=== PATIENT | female | born 1960 | race Caucasian/White ===

== ENCOUNTER 2019-10-07 09:06 | Inpatient (IN) | payer OTHER ==
[~2019-10-07 09:06] MED LIST: Buffered Lidocaine 1% SYRIN* 1 ML/SYRINGE INTRADERM ONE; Dexamethasone IV* 4 MG/ML 1 ML (4 MG) IV SLOW PU ONE; Famotidine IV* 10 MG/ML 2 ML (20 mg) IV ONE; Gabapentin CAP(*) 400 MG PO ONE; Lactated Ringers 1000 ML Bag* 1,000 ML IV SCH; Tranexamic Acid 1,000 MG in NS 0.9% 50 ML* (outpatient use) IV SCH
--- OUTSIDE RECORDS SUMMARY | 2019-10-07 09:10 | XMS REPORT | Continuity of Care Document ---
:1960 External Reference #:[id number] Author Name Sebastien Castillo M.D. (transmitted by agent of provider Harriet Ochoa) Address [address] [place] [address] Problems Description No Information Available Social History Type Date Description Comments Sex Unknown ETOH Use Occasionally consumes alcohol Tobacco Use Start: Unknown Patient is a current smoker, smokes every day Smoking Status Reviewed: 08/30/19 Patient is a current smoker, smokes every day Allergies, Adverse Reactions, Alerts Active Allergies Reaction Severity Comments Date Percocet 08/23/2019 Medications Active Medications SIG Qnty Indications Ordering Provider Date Equapax/Ibuprofen/Minrex tid prn Unknown 800mg THPK Immunizations Description No Information Available Vital Signs Date Vital Result Comment 08/30/2019 2:00pm Height 67 inches 5'7" Weight 128.00 lb Heart Rate 88 /min BP Systolic Sitting 120 mmHg BP Diastolic Sitting 84 mmHg Body Temperature 98.0 F BMI (Body Mass Index) 20.0 kg/m2 Results Description No Information Available Procedures Description No Information Available Medical Devices Description No Information Available Encounters Description No Information Available Assessments Date Code Description Provider 08/30/2019 M16.11 Unilateral primary osteoarthritis, right hip Sebastien Castillo M.D. Plan of Treatment 08/30/2019 - Sebastien Castillo M.D.M16.11 Unilateral primary osteoarthritis, right hipFollow up:4 weeks after surgery Functional Status Description No Information Available Mental Status Description No Information Available Referrals Description No Information Available
--- OUTSIDE RECORDS SUMMARY | 2019-10-07 09:10 | XMS REPORT | Continuity of Care Document ---
:1960 External Reference #:[id number] Author Name Sebastien Castillo M.D. (transmitted by agent of provider Harriet Ochoa) Address [address] [place] [address] Problems Description No Information Available Social History [...]
--- OUTSIDE RECORDS SUMMARY | 2019-10-07 09:10 | XMS REPORT | Continuity of Care Document ---
:1960 External Reference #:[id number] Author Name Wen Berger MD, [facility] (transmitted by agent of provider Pooja Olivas) Address [address] [place] [address] Problems Description No Information Available Social History [...] BMI (Body Mass Index) 20.0 kg/m2 Results Test Acquired Date Facility Test Result H/L Range Note Inr/Protime 09/25/2019 [facility] Inr 0.88 Normal 0.82-1.[address] [place] [address] [phone] Laboratory test 09/25/2019 [facility] Partial 32.9 Normal 26.0 -38.[address] [place] [address] PTT [phone] Comp Metabolic 09/25/2019 [facility] Sodium 136 mmol/L Normal 135-[address] [place] [address] [phone] Potassium 4.3 mmol/L Normal 3.5-5.0 Chloride 101 mmol/L Normal 101-111 Co2 Carbon Dioxide 29 mmol/L Normal 22-32 Anion Gap 6 mmol/L Normal 2-11 Glucose 91 mg/dL Normal 70-100 Blood Urea Nitrogen 7 mg/dL Normal 6-24 Creatinine 0.67 mg/dL Normal 0.51-0.95 BUN/Creatinine Ratio 10.4 Normal 8-20 Calcium 9.6 mg/dL Normal 8.6-10.3 Total Protein 7.0 g/dL Normal 6.4-8.9 Albumin 4.4 g/dL Normal 3.2-5.2 Globulin 2.6 g/dL Normal 2-4 Albumin/Globulin Ratio 1.7 Normal 1-3 Total Bilirubin 0.80 mg/dL Normal 0.2-1.0 Alkaline Phosphatase 80 U/L Normal 34-104 Alt 15 U/L Normal 7-52 Ast 27 U/L Normal 13-39 Egfr Non- 90.1 >60 Egfr 109.0 >60 2 CBC Auto 09/25/2019 [facility] White Blood 7.7 10^3/uL Normal 3.5-10.[address] [place] [address] [phone] Red Blood Count 4.56 10^6/uL Normal 3.70-4.87 Hemoglobin 16.7 g/dL High 12.0-16.0 Hematocrit 49 % High 35-47 Mean Corpuscular Volume 107 fL High 80-97 Mean Corpuscular Hemoglobin 37 pg High 27-31 Mean Corpuscular HGB Conc 34 g/dL Normal 31-36 Red Cell Distribution Width 14 % Normal 10-15 Platelet Count 268 10^3/uL Normal 150-450 Mean Platelet Volume 7.3 fL Low 7.4-10.4 Abs Neutrophils 4.9 10^3/uL Normal 1.5-7.7 Abs Lymphocytes 2.0 10^3/uL Normal 1.0-4.8 Abs Monocytes 0.6 10^3/uL Normal 0-0.8 Abs Eosinophils 0.1 10^3/uL Normal 0-0.6 Abs Basophils 0.0 10^3/uL Normal 0-0.2 Abs Nucleated RBC 0.0 10^3/uL Granulocyte % 64.4 % Lymphocyte % 26.5 % Monocyte % 7.5 % Eosinophil % 1.0 % Basophil % 0.6 % Nucleated Red Blood Cells % 0.1 Type & Screen 09/25/2019 [facility] Patient Blood Type A Positive [address] [place] [address] [phone] Antibody Screen NEGATIVE 1 Standard intensity warfarin therapeutic range: 2.0-3.0 High intensity warfarin therapeutic range: 2.5-3.5 2 Because ethnic data is not always readily available, this report includes an eGFR for both -Americans and non- Americans. The National Kidney Disease Education Program (NKDEP) does not endorse the use of the MDRD equation for patients that are not between the ages of 18 and 70, are , have extremes of body size, muscle mass, or nutritional status, or are non- or non-. According to the National Kidney Foundation, irrespective of diagnosis, the stage of the disease is based on the level of kidney function: Stage Description GFR(mL/min/1.73 m(2)) 1 Kidney damage with normal or decreased GFR 90 2 Kidney damage with mild decrease in GFR 60-89 3 Moderate decrease in GFR 30-59 4 Severe decrease in GFR 15-29 5 Kidney failure <15 (or dialysis) Procedures Description No Information Available Medical Devices Description No Information Available Encounters Type Date Location Provider Dx Diagnosis Office Visit 08/30/2019 [facility] Sebastien Castillo, M16.11 Unilateral primary 2:00p at [facility] osteoarthritis, right hip M16.12 Unilateral primary osteoarthritis, left hip Assessments Date Code Description Provider 08/30/2019 M16.11 Unilateral primary osteoarthritis, right hip Sebastien Castillo M.D. 08/30/2019 M16.12 Unilateral primary osteoarthritis, left hip Sebastien Castillo M.D. Plan of Treatment Future Appointment(s):10/07/2019 1:30 pm - XIMENA Murrell at [facility]10/07/2019 1:30 pm - Sebastien Castillo M.D. at [facility]08/30/2019 - Sebastien Castillo M.D.M16.11 Unilateral primary osteoarthritis, right hipFollow up:4 weeks after [id number] Unilateral primary osteoarthritis, left hip Functional Status Description No Information Available Mental Status Description No Information Available Referrals Description No Information Available
[2019-10-07] MEDS ORDERED: celeCOXIB CAP* 200 MG ONE (09:59)
[2019-10-07] MEDS ORDERED: Gabapentin CAP(*) 400 MG PO ONE (09:59)
[2019-10-07] MEDS ORDERED: Famotidine IV* 10 MG/ML 2 ML (20 mg) ONE (09:59)
[2019-10-07] MEDS ORDERED: Dexamethasone IV* 4 MG/ML 1 ML (4 MG) ONE (09:59)
[2019-10-07] MEDS: celeCOXIB CAP* 200 MG PO ONE ×2 (10:29→19:05)
[2019-10-07] MEDS ORDERED: ceFAZolin 2 GM PREMIX in ORs 2 GM/50 ML BAG ONE (10:42)
[2019-10-07] MEDS ORDERED: Midazolam* 1 MG/ML 5 ML VIAL (5 MG) ONE (12:32)
[2019-10-07] MEDS ORDERED: KETAMINE HCL* 50 MG/ML 10 ML VIAL ONE (12:32)
[2019-10-07] MEDS ORDERED: Bupivacaine 0.5% SDV PF* 30ML VIAL ONE (12:37)
[2019-10-07] MEDS ORDERED: Propofol* 500 MG/50 ML BTL ONE (13:14)
[2019-10-07] MEDS ORDERED: EPHEDrine (Pressors)* 50 MG/ML VIAL ONE (14:00)
[2019-10-07] MEDS ORDERED: Ondansetron INJ* 2 MG/ML VIAL IV PRN ×2 (14:25→15:13)
[2019-10-07] MEDS ORDERED: Naloxone* 0.4 MG/ML 1 ML VIAL IV PRN (14:25)
[2019-10-07] MEDS ORDERED: Acetaminophen IV 1GM/100ML * 1,000 MG/100 ML VIAL IVPB ONE (14:25)
[2019-10-07] MEDS ORDERED: HYDROmorphone INJ1* 1 MG/ML SYRINGE IV PRN (14:25)
[2019-10-07] MEDS ORDERED: Cyclobenzaprine TAB* 10 MG PO PRN (15:13)
[2019-10-07] MEDS ORDERED: diPHENhydraMINE IV* 50 MG/ML 1 ml VIAL (BENADRYL) IV PRN (15:13)
[2019-10-07] MEDS ORDERED: Morphine INJ* 2 MG/ML 1 ML SYRINGE (TWO MG - NEW SYRINGE VERSION) IV PRN (15:13)
[2019-10-07] MEDS ORDERED: Magnesium Hydroxide LIQ* 30 ML UDC PO PRN (15:13)
[2019-10-07] MEDS ORDERED: diPHENhydraMINE PO* 25 MG PO PRN (15:13)
[2019-10-07] MEDS ORDERED: Ondansetron ODT TAB* 4 MG PO PRN (15:13)
[2019-10-07] MEDS ORDERED: Acetaminophen IV 1GM/100ML * 100 ML ONE (15:54)
[2019-10-07] MEDS ORDERED: Ketorolac INJ* 30 MG/ML 1 ML VIAL ONE (15:54)
[2019-10-07] MEDS: Ketorolac INJ* 30 MG/ML 1 ML VIAL IV PRN (15:58)
[2019-10-07] MEDS: D5W 1/2 NS 1000 ML BAG* 1,000 ML IV SCH (18:37)
[2019-10-07] MEDS ORDERED: Warfarin TAB(*) 10 MG PO ONE (19:30)
[2019-10-07] MEDS: Magnesium Hydroxide LIQ* 30 ML UDC PO SCH (19:53)
[2019-10-07] MEDS: Docusate CAP* 100 MG PO SCH (19:53)
[2019-10-07] MEDS: traMADol TAB* 50 MG PO SCH (19:53)
[2019-10-07] MEDS ORDERED: Acetaminophen TAB* 325 MG PO PRN (20:25)
[2019-10-07] MEDS: ceFAZolin 1 GM ADVAN(*) 1 GM in NS 0.9% 50 ML* 50 ML IVPB SCH (21:29)
[2019-10-07] MEDS: oxyCODONE/Acetamin 5/325 MG* TAB PO PRN (23:38)
[2019-10-08] MEDS: traMADol TAB* 50 MG PO SCH ×4 (01:56→19:42)
--- NOTE | 2019-10-08 04:07 | OP ---
OPERATIVE REPORT: DATE OF OPERATION: 10/07/19 - Inpatient, room [facility]-02 DATE OF : 60 SURGEON: Sebastien Castillo MD INSTALLATION DRAFTER: Tawana Marin RPA ANESTHESIOLOGIST: Obinna Boyer MD ANESTHESIA: Spinal and sedation. PRE-OP DIAGNOSIS: Osteoarthritis, left hip. POST-OP DIAGNOSIS: Osteoarthritis, left hip. OPERATIVE PROCEDURE: Left total hip arthroplasty. ESTIMATED BLOOD LOSS: 100 cc. COMPLICATIONS: None. HARDWARE: [employer] 52 mm cup, #10 reduced neck standard offset M/L taper, -3.5 mm 36 mm head. SUMMARY: Mrs. Mota is a 59-year-old female who has been having more and more troubles with left groin pain. She had been diagnosed with osteoarthritis and had significant troubles with even simple ADLs as well as sleeping. By x-ray, she was [id number] with significant spurring and loss of the roundness of the femoral head as well as some flattening. I discussed with her that a total hip arthroplasty should work well to decrease her pain and improve her function. Risks of surgery such as infection, scar formation, stiffness, DVT, pulmonary embolism, hardware failure, leg length discrepancy and instability were some of the risks discussed. She had been declared medically optimized and wished to proceed. DESCRIPTION OF PROCEDURE: The patient was brought to the OR and spinal anesthesia was introduced. Self catheter was placed. She was then rolled into the right lateral decubitus position and an axillary roll was placed and she was secured to the hip table. Left hip area was prepped and then draped. An incision was made centered over the greater trochanter extending distally and proximally for about 6 cm. Incision was carried down through the skin and subcutaneous tissues. Small bleeders encountered were ligated using electrocautery. Fascia was exposed and sharply incised. Muscle fibers were bluntly split proximally. Sharp Hohmann was placed under the gluteus medius/ gluteus minimus and nice exposure of the piriformis and short external rotators were obtained. Electrocautery was then used to take down piriformis and short external rotators and then a T-capsulotomy was made. Bone spurs were immediately evident on the femoral head. Femoral head was then easily dislocated from the acetabulum and cutting guide was placed. Femoral neck was marked and then the femoral head was resected. Anterior retractor and inferior retractors were placed and nice exposure of the entire acetabulum was obtained. Redundant and calcified labrum was taken down sharply and beginning with 46 reamer, she was first deepened a little bit and then progressively reamed. I templated the head to be approximately a 54 and the head was exactly a 54. She was reamed to 50 where I had a fairly good side to side fit, so she was then reamed to 51 and there was a good bed of bleeding bone. 52 cup was then impacted into place. Two screws were placed with a very good bite. Trial liner was placed and attention was turned to the proximal femur. Box osteotome was used to open the femoral canal and the canal finder was easily passed. Beginning with a 4 broach, she was progressively broached and the 10 sat nicely and this was exactly to what she had been templated for. Reduced neck was also placed and she was trialed with 0 and was long and then this was immediately changed to -3.5. She was still a little bit long but had quite good stability. With dislocating the hip, the broach was little bit loose, so I was able to countersink this and this was done twice in order to adjust her leg length. Calcar planer was used each time. Trial was removed. Finally when her leg length appeared good, she did not loosen the broach and trial instrumentation was removed. She was quite stable but considering how lean she was allowing more than the usual motion, I thought she would do better with a posterior lip and this was impacted into place. 10 reduced neck was also impacted into place and she was again trialed with 0 and -3.5 head. After taking her through both of them, the stem had not loosened and a -3.5 head was then impacted into place. Hip was then reduced and she had the same wonderful stability and her leg length also appeared perfect. Hip was closely pulse lavaged. Posterior capsule with short external rotators were repaired together to the posterior aspect of the greater trochanter. Fascia was repaired using interrupted #1 Vicryl sutures. Subcutaneous tissues were reapproximated using 2-0 Vicryl. Skin was closed using tiera. Sterile dressing was applied in the OR. The patient was then rolled on to the hospital bed and was stable on transfer to the recovery room. [id number]/[facility] [place]: [id number] [facility] HOSPITALJerilyn
[2019-10-08] MEDS: D5W 1/2 NS 1000 ML BAG* 1,000 ML IV SCH (04:32)
[2019-10-08] MEDS: oxyCODONE/Acetamin 5/325 MG* TAB PO PRN ×6 (04:40→23:43)
[2019-10-08 05:25] LABS: Hematocrit 40 % (35-47); Hemoglobin 13.4 g/dL (12.0-16.0); Mean Platelet Volume 6.8 fL (7.4-10.4); Platelet Count 244 10^3/uL (150-450)
[2019-10-08 05:42] LABS: INR 0.94 (0.82-1.09)
[2019-10-08] MEDS: ceFAZolin 1 GM ADVAN(*) 1 GM in NS 0.9% 50 ML* 50 ML IVPB SCH ×2 (05:42→13:02)
[2019-10-08 05:43] LABS: BUN/Creatinine Ratio 18.2 (8-20); Calcium 8.4 mg/dL (8.6-10.3); EGFR African American 177.1 (>60); EGFR Non-African American 146.4 (>60); Potassium 4.3 mmol/L (3.5-5.0)
[2019-10-08] MEDS: Docusate CAP* 100 MG PO SCH ×2 (08:53→21:29)
[2019-10-08] MEDS: Vitamin THERAPEUTIC TAB PO SCH (08:53)
[2019-10-08] MEDS: Magnesium Hydroxide LIQ* 30 ML UDC PO SCH ×2 (08:54→21:29)
[2019-10-08] MEDS: Heparin VIAL(*) 5000 UNITS/ML VIAL (FIVE THOUSAND) SUBCUT SCH ×3 (08:56→21:29)
--- NOTE | 2019-10-08 10:48 | PN ---
Progress Note - Progress Note Date of Service: 10/08/19 SOAP: Subjective: [Pt was seen this morning sitting up in chair. She states that she is doing well. Pain is well controlled. Describes some tightness around the incision. Denies any chest pain, SOB, Nausea or vomiting. ] Objective: [General: Pt is alert and oriented x3, NAD. MSK, LLE: Dressing is c/d/i, Calf soft and non tender. +df/pf. NVI distally, 2+ DP pulse. ] Vital Signs Temp 98.5 F 10/08/19 07:57 Pulse 69 10/08/19 07:57 Resp 16 10/08/19 08:54 BP 108/68 10/08/19 07:57 Pulse Ox 97 10/08/19 07:57 Intake & Output 10/07/19 10/08/19 10/08/19 18:59 06:59 18:59 Intake Total 1750 Output Total 1800 Balance -50 Weight 129 lb 8 oz Intake: IV Fluids 1000 ABX - CEFAZOLIN 50 D5W 1/2 NS 950 Oral 750 Output: Self 1800 Other: Estimated Void Medium # Voids 1 Assessment: [POD 1 LTKA ] Plan: [Dressing change tomorrow PT/OT Continue with current pain medication Current anticoagulation Possible DC tomorrow. ]
[2019-10-09] MEDS: traMADol TAB* 50 MG PO SCH ×2 (00:07→08:30)
[2019-10-09 05:41] LABS: Hematocrit 37 % (35-47); Hemoglobin 12.7 g/dL (12.0-16.0); Mean Platelet Volume 6.9 fL (7.4-10.4); Platelet Count 222 10^3/uL (150-450)
[2019-10-09 05:46] LABS: INR 1.37 (0.82-1.09)
[2019-10-09] MEDS: Heparin VIAL(*) 5000 UNITS/ML VIAL (FIVE THOUSAND) SUBCUT SCH (05:56)
[2019-10-09] MEDS: oxyCODONE/Acetamin 5/325 MG* TAB PO PRN ×3 (05:56→10:52)
[2019-10-09] MEDS: Vitamin THERAPEUTIC TAB PO SCH (08:48)
[2019-10-09] MEDS: Docusate CAP* 100 MG PO SCH (08:48)
[2019-10-09] MEDS: Ketorolac INJ* 30 MG/ML 1 ML VIAL IV PRN (08:49)
[2019-10-09] MEDS: Magnesium Hydroxide LIQ* 30 ML UDC PO SCH (08:59)
--- NOTE | 2019-10-09 10:34 | PN ---
Progress Note - Progress Note Date of Service: 10/09/19 SOAP: Subjective: [Patient seen OOB with walker. She has no complaints of pain with current pain management. She has had a BM this morning. She completed PT this morning without issue. She denies CP, SOB, f/c, n/v. She is ready to go home. Objective: [General: A&O. NAD. LLE: Dressing changed today, incision C/D/I with ecchymosis noted around incision. No erythema or warmth, or TTP around incision. Post/ant thigh soft and nontender. Calf soft and nontender without palpable cords, redness or swelling. She is able to stand with walker for dressing change. + f/e L knee, + DF/PF L ankle. NVI distally.] Assessment: [POD# Left total hip replacement with Dr. Castillo] Plan: [D/C home today Warfarin for DVT ppx, INR checks on and Mondays. Will supp with ASA 325mg till INR is 2 PT outpt Percocet for pain Laboratory Last Values Hgb 12.7 g/dL (12.0-16.0) 10/09/19 05:15 Hct 37 % (35-47) 10/09/19 05:15 Plt Count 222 10^3/uL (150-450) 10/09/19 05:15 MPV 6.9 fL (7.4-10.4) L 10/09/19 05:15 INR (Anticoag Therapy) 1.37 (0.82-1.09) H 10/09/19 05:15 Sodium 126 mmol/L (135-145) L 10/08/19 04:55 Potassium 4.3 mmol/L (3.5-5.0) 10/08/19 04:55 Chloride 96 mmol/L (101-111) L 10/08/19 04:55 Carbon Dioxide 26 mmol/L (22-32) 10/08/19 04:55 Anion Gap 4 mmol/L (2-11) 10/08/19 04:55 BUN 8 mg/dL (6-24) 10/08/19 04:55 Creatinine 0.44 mg/dL (0.51-0.95) L 10/08/19 04:55 Est GFR ( Amer) 177.1 (>60) 10/08/19 04:55 Est GFR (Non-Af Amer) 146.4 (>60) 10/08/19 04:55 BUN/Creatinine Ratio 18.2 (8-20) 10/08/19 04:55 Glucose 146 mg/dL (70-100) H 10/08/19 04:55 Calcium 8.4 mg/dL (8.6-10.3) L 10/08/19 04:55 Vital Signs Temp Pulse Resp BP Pulse Ox 98.4 F 79 16 92/60 94 10/09/19 08:32 10/09/19 08:32 10/09/19 08:48 10/09/19 08:32 10/09/19 08:32 ]
--- NOTE | 2019-10-09 10:38 | DS ---
Orthopedic Discharge Summary - Discharge Summary Date of Admission:10/07/19 Date of Discharge: [10/09/19 Date of Surgery: 10/07/19 Attending Orthopedic Provider: Dr. Castillo Pre-operative Diagnosis: Left hip arthritis Operative Procedure: Left hip replacement Disposition of Patient: Home Condition of Patient: Stable History: ASHER LEWIS is a 59 year old F with years of increasingly severe left hip pain. Patient has failed conservative management and has elected to undergo a left total hip replacement Hospital Course: ASHER was admitted to [facility] on 10/07/19. Patient underwent a left hip replacement without complication followed by a brief recovery in PACU and transfer to the Short Stay Surgical Unit in stable condition. Our hospitalist service, physical therapy and occupational therapy also participated in this patients care. Post-op day 1: patient was alert and in no acute distress. Dressing was clean, dry and intact. Operative extremity dorsiflexion and plantarflexion intact, sensation intact to light touch distally , DP2+. Post-op day two: dressing was changed, incision was clean, dry and intact. Patient was deemed to be medically and orthopedically stable for discharge. Physical therapy goals were met. Home Medications Medication Instructions Recorded Confirmed Type Docusate CAP* [Colace Cap*] 100 mg PO BID cap 10/09/19 Rx oxyCODONE/Acetamin 5/325 MG* 2 tab PO Q4H PRN tab 10/09/19 Rx [Percocet 5/325 TAB*] Warfarin- 2mg tablets Discharge Instructions following Orthopedic Surgery: Activity: * Weight Bearing as tolerated * Continue physical therapy and occupational therapy exercises as shown Hip replacements: Continue Hip Precautions- do not cross legs or bend greater than 90 degrees/squat Wound care: * OK to shower on post-op day 3, no bathing, swimming, or submerging wound. * Use gentle soap, pat dry. Cover with gauze, CHANDA wrap or tape. Call Orthopedic office for: * Increased drainage * Redness * Increased pain * Fever Go to ER with shortness of breath or chest pain. Diet: * Regular diet * Increase fluids and fiber to prevent constipation. * Continue to use stool softeners, call office if no bowel motion within 48 hours. Medications See Home Medication List in your packet for medications that you should take after discharge. DVT Prophylaxis: Coumadin Dosing: * Please note that you have been given 2 mg tablets. * Visiting home nurse to draw blood work for INR on Monday and . * You will be provided with dose instructions on Mondays and . * If you do not receive dosing instruction on dosing, please call our office right away. Please clifford dosing instructions on your calendar as they are provided to you. * Dosing: INR blood draw for further dosing instructions. Call orthopedic office if you do not receive dosing instructions. * * Take 3 tablets tonight, 10/09/19. INR will be drawn tomorrow. Aspirin Dosin mg twice a day Pain Control: Percocet Dosin/325 mg 1-2 tabs by mouth every 4-6 hours as needed for pain. Maximum of 10 tabs per day. Please note that Percocet contains Tylenol (acetaminophen). Maximum daily dose of Tylenol is 4000 mg from all sources. Antibiotics are required prior to any dental work. FOLLOW UP: Follow up with Within 10-14 days, call for appointment Please call our office with any questions or concerns ([phone])
[2019-10-09 10:58] VITALS: BP 100/70
== END 2019-10-09 12:25 | disposition home or self-care (01) | DRG 301 ==
LOC: AA 09:06 → SSU 15:13
PROVIDERS: ADMIT Orthopaedic Surgery; ATTEND Orthopaedic Surgery
PROC: 0SRB02A Replacement of Left Hip Joint with Metal on Polyethylene Synthetic Substitute, Uncemented, Open Approach (ICD-10-PCS; principal; 2019-10-07 11:00)
DX: M16.12 Unilateral primary osteoarthritis, left hip (principal); F17.210 Nicotine dependence, cigarettes, uncomplicated; M25.562 Pain in left knee; G89.29 Other chronic pain; Z88.6 Allergy status to analgesic agent
CPT/HCPCS: 36415; 80048; 85014; 85018; 85049; 85610; 88304; 88311; A9270-GY; C1713; C1776; G8987-GO-CJ; G8988-GO-CJ; G8989-GO-CJ; J0690; J1100; J1644; J1885; J2250; J2704; J3490